=== PATIENT | male | born 1970 | race Caucasian/White ===

== ENCOUNTER → 2016-08-10 | Outpatient (CLI) | payer OTHER ==
--- NOTE | 2016-08-10 10:51 | XR ---
EXAMINATION TYPE: XR hand complete LT DATE OF EXAM ORDERED: 08/10/2016 HISTORY: S60.222A contusion left hand. COMPARISON: None. FINDINGS: No fracture or dislocation is seen. There is minimal cystic change in the distal metaphysi s of the first metacarpal. IMPRESSION: NO ACUTE OSSEOUS LESION.
== END | disposition home or self-care (01) ==
LOC: RADXRMAIN 10:35
PROVIDERS: ATTEND Emergency Medicine
DX: S60.222A Contusion of left hand, initial encounter (principal)